=== PATIENT | male | born 1935 ===

== ENCOUNTER 2022-12-10 14:50 | Inpatient (IN) | payer MEDICARE, OTHER ==
[~2022-12-10] VITALS: Ht 180.3 cm; Wt 77.8 kg
--- NOTE | 2022-12-10 15:40 | NUR ---
Pt arrives to facility via EMS. Is alert, Ox4, VSS, Ox4. L arm in sling. Able to move fingers, cap refill >3 sec, radial pulse strong/easily palpable. Reports pain to L upper arm 2/10 at rest. Abrasion to L elbow noted. Dried blood and bandaid in place. IV to RFA - SL. Easily moves legs in bed. Bilat knees noted to have non-draining abrasions. Reports prior to injury, up independant at home. Has had "a couple" recent falls, one of which led to current injury.
[2022-12-10 16:08] VITALS: BP 107/59; PULSE 65; TEMP 98.3
[2022-12-10 17:00] VITALS: BP_SYST 107
--- NOTE | 2022-12-10 17:15 | NUR ---
Assist ortho provider to place splint to PIPPA and reapply sling.
[2022-12-10] MEDS ORDERED: CORDARONE200 MG/TAB PO (17:22)
[2022-12-10] MEDS ORDERED: COREG 3.123.125 MG/T PO (17:24)
[2022-12-10] MEDS ORDERED: CRESTOR5 MG PO (17:25)
[2022-12-10] MEDS ORDERED: LASIX 40MG TABL40 MG PO (17:28)
[2022-12-10] MEDS ORDERED: PROSCAR 5MG5 MG PO (17:30)
[2022-12-10] MEDS ORDERED: MULTI-VITAMIN W1 TA1 PO (17:31)
[2022-12-10] MEDS ORDERED: ASPIRIN E.C. 8181 MG PO (17:31)
[2022-12-10 19:33] VITALS: BP 96/49; PULSE 65; TEMP 98.4
--- NOTE | 2022-12-10 20:00 | NUR ---
Patient resting in bed. Denies any pain at this time. Heart rate regular, lungs clear in all lobes, bowels active in all quadrants. IV in right forarm appears clean, dry, intact, and infusing with no complications. Denies any needs at this time. Call light and personal items in reach. Bed in low postion, bed alarm on, and non-slip footwear in place.
[2022-12-10 21:00] VITALS: BP_SYST 96
[2022-12-10 23:33] VITALS: BP 112/54; PULSE 68; TEMP 98.5
[2022-12-11] VITALS (12 sets, daily range): BP systolic 100–126; BP diastolic 50–61; PULSE 7–81; TEMP 97.9–100.1
--- NOTE | 2022-12-11 06:00 | NUR ---
Patient resting in bed. Denies any pain at this time. Patient monitored throughout the night by this nurse. Call light and personal items in reach. Bed in low postion and bed alarm on. Denies any other needs at this time.
[2022-12-11 06:40] LABS: BASO % 0.3 % (0.0-2.0); EOS # 0.1 K/mm3 (0.0-0.7); EOS % 1.1 % (0.0-4.0); GRAN # 9.7 K/mm3 (1.4-6.5); GRAN % 80.6 % (42.2-75.2); HEMOGLOBIN 11.1 g/dl (13.5-18.0); LYMPH # 0.9 K/mm3 (1.2-3.4); LYMPH % 7.8 % (20.0-51.0); MEAN CELL VOLUME 89 fl (80.0-100.0); MEAN CORPUSCULAR HEMOGLOBIN 30 pg (27-31); MEAN CORPUSCULAR HGB CONC 34 g/dl (33.0-37.0); MEAN PLATELET VOLUME 9.3 fl (7.4-10.4); MONO # 1.1 K/mm3 (0.1-0.6); MONO % 9.5 % (1.7-9.3); PLATELET COUNT 154 K/mm3 (130-400); RED BLOOD COUNT 3.66 M/mm3 (4.20-5.60); REDCELL DISTRIBUTION WIDTH-CV 13.3 % (11.5-14.5)
[2022-12-11 06:55] LABS: C-REACTIVE PROTEIN 13.25 mg/dL (0.00-0.50); CALCIUM 8.1 mg/dL (8.4-10.2); CREATININE, serum 4.29 mg/dL (0.72-1.25); MAGNESIUM 2.1 mg/dL (1.6-2.6); POTASSIUM 4.4 mmol/L (3.5-4.5)
[2022-12-11 07:00] LABS: HEMATOCRIT 32.6 % (42.0-52.0)
--- NOTE | 2022-12-11 15:57 | NUR ---
Flame Annealing Machine Setter attempted to contact Patient via bed phone to conduct Care Managment Assessment due to Patient being on droplet isolation. Patient did not answer. SW requested Nurse's assistance when able to assist Patient with bed phone for assessment. Flame Annealing Machine Setter attempted to contact Patient's NOK listed as "family" in chart. SW was unable to leave a voicemail.
[2022-12-11 16:43] LABS: COLLECTION METHOD CLEAN CATCH
[2022-12-11 16:51] LABS: MUCOUS Present (NOT PRESENT); SQUAMOUS EPITHELIAL 0-2 /hpf (0-10); URINE BACTERIA None Seen /hpf (NONE SEEN); URINE RBC 0-2 /hpf (0-2)
[2022-12-11 16:52] LABS: PH 5.5 (5.0-8.5); URINE APPEARANCE Clear (CLEAR/HAZY); URINE BLOOD Negative (NEGATIVE); URINE COLOR Yellow (YELLOW); URINE GLUCOSE Negative (NEGATIVE); URINE KETONE Negative (NEGATIVE); URINE NITRATE Negative (NEGATIVE); URINE PROTEIN(semi-quant) 1+ (NEGATIVE); URINE UROBILINOGEN 0.2 E.U/dL (0.2-1.0)
--- NOTE | 2022-12-11 18:33 | NUR ---
ELECTRICAL INSPECTOR HAD SPOKEN TO PT DAUGHTER JESSICA LOPEZ EARLIER DURING SHIFT. DAUGHTER HAD ASKED ELECTRICAL INSPECTOR ABOUT VISITING PT WITH HER MOTHER (PT ); ELECTRICAL INSPECTOR INFORMED DAUGHTER THAT COVID PATIENTS IN ISOLATION CAN'T HAVE VISITORS, SO THEY CAN'T VISIT. ELECTRICAL INSPECTOR HAD TOLD DAUGHTER THAT STAFF WOULD HELP PT CALL DAUGHTER AND @ 1800 TO TALK TO THEM. MARGAUX (PCT) ATTEMPTED TO CALL FROM PATIENT ROOM TO THE DAUGHTER AND SAID THAT THE CALL WOULD NOT GO THROUGH; ELECTRICAL INSPECTOR WAS BUSY WITH OTHER PATIENT CARE AT THIS TIME. DAUGHTER CALLED ELECTRICAL INSPECTOR @ 1830 ASKING ABOUT THE CALL. ELECTRICAL INSPECTOR INFORMED DAUGHTER ABOUT DIFFICULTY WITH THE PHONE IN THE ROOM REPORTED BY PCT. DAUGHTER INSTANTLY BECAME ENRAGED AND YELLING. ELECTRICAL INSPECTOR ASKED DAUGHTER TO PLEASE NOT YELL AT ELECTRICAL INSPECTOR. DAUGHTER ASKED ABOUT BRINGING PT CELL PHONE UP, ELECTRICAL INSPECTOR TOLD HER THAT WOULD BE FINE TO BRING IT UP BUT THAT THEY STILL COULD NOT VISIT. DAUGHTER CLAIMS THAT ELECTRICAL INSPECTOR TOLD HER EARLIER THAT SHE COULD NOT BRING THE CELL PHONE UP, BUT THAT WAS NEVER BROUGHT UP IN EARLIER CONVERSATION. DAUGHTER STARTED YELLING ABOUT PT SUPPOSEDLY NOT HAVING A WORKING PHONE IN HIS ROOM. ELECTRICAL INSPECTOR TOLD DAUGHTER THAT PT ROOM PHONE WORKS, BUT WOULD NOT CONNECT FOR CALL TO HER FOR SOME REASON. DAUGHTER WAS BECOMING AGGRESSIVE AGAIN AND STATED SHE WOULD BE CALLING THE DON IN THE MORNING. ELECTRICAL INSPECTOR GAVE DAUGHTER DON NAME.
[2022-12-12] VITALS (13 sets, daily range): BP systolic 85–132; BP diastolic 41–73; PULSE 70–84; TEMP 97.5–99.2
--- NOTE | 2022-12-12 00:02 | NUR ---
2149-PT. NEEDED HELP USING THE URINAL, HIS LEFT ARM IS WRAPPED AND IN A SLING DUE TO A HUMERUS FX, PT. DENIES ANY PAIN AT THE MOMENT, JUST DIFFICULTY DOING THINGS WITH ONLY ONE HAND, DRESSING/WRAP ON LT ARM IS C/D/I, SLING IN PLACE CORRECTLY, LUNG SOUNDS ARE CLEAR, BUT DIMINISHED, PT. DENIES ANY FURTHER NEEDS AT THIS TIME, WILL CONTINUE TO MONITOR.
[2022-12-12 08:32] LABS: CALCIUM 8.4 mg/dL (8.4-10.2); CREATININE, serum 4.16 mg/dL (0.72-1.25); MAGNESIUM 2.1 mg/dL (1.6-2.6); POTASSIUM 4.5 mmol/L (3.5-4.5)
--- NOTE | 2022-12-12 12:23 | NUR ---
Health Care Liaison contacted Patient's [id number] via phone number provided by nurse. SW conducted Care Managment Assessment with family due to Patient being COVID Pos and SW unable to contact via bed phone. Patient lives with his in [place], [place] and is established with Dr. Deluna. Patient is reported to be covered by [facility] and [employer] for insurance. Patient is reported to use [facility] for pharmacy needs. Patient is reported to utilize a walker PRN but is otherwise ambulatory on his own. Daughter states that Patient does not have DPOAHC at this time. Discharge Plan: Home.
[2022-12-13] VITALS (13 sets, daily range): BP systolic 97–110; BP diastolic 48–63; PULSE 60–79; TEMP 97.4–99.5
--- NOTE | 2022-12-13 02:03 | NUR ---
PATIENT LYING IN BED, ALERT AND ORIENTED X4. PATIENT DENIES CHEST PAIN AND SHORTNESS OF BREATH AT THIS TIME. SOFT BP's RECORDED, 87/41, 85/42, MANUAL BP MEASURED 91/48, PT DENIES DIZZINESS OR ADDITIONAL SYMPTOMS. SKYLA SARAVIA NOTIFIED, CONTINUE WATCHING AND NOTING ANY SYMPTOMS, CARVEDILOL PUT ON HOLD. LEFT ARM IS IVETH SPLINT AND SLING, PER PATIENT REPORT SENSITIVE TO TOUCH. PT HAS NO FURTHER NEEDS, QUESTIONS, OR CONCERNS AT THIS TIME. CALL LIGHT WITHIN REACH, WILL CONTINUE TO MONITOR.
--- NOTE | 2022-12-13 05:22 | NUR ---
PATIENT HAD AN UNEVENTFUL NIGHT, ALERT AND ORIENTED X4. PT REPORT ACHING PAIN IN THE LEFT ARM 7/10, PER REST ROXICODONE GIVEN AND UPON REASSESSMENT, PAIN RATED A 5/10. PT HAS NO FURTHER NEEDS, QUESTIONS, OR CONCERNS AT THIS TIME. CALL LIGHT WITHIN REACH, CARE TO BE PASSED TO DAY SHIFT NURSE.
--- NOTE | 2022-12-13 09:15 | NUR ---
Patient is resting in bed, alert and oriented x 3, refuese anypain at this time. Swing on left arm. Assessment completed, meds provided. No further needs at this time. Call light within reach.
--- NOTE | 2022-12-13 15:05 | NUR ---
rn social work reviewed chart. Patient is recommended to need post acute rehab on discharge. Physician referred [facility] to [facility]. [facility] declines Patient at this time. SW attempted to contact Patient's daughter to discuss discharge planning. SW was unable to reach her. SW attempted to contact Patient via bed phone with no success.
--- NOTE | 2022-12-13 19:22 | NUR ---
Report given to night RN.
[2022-12-14] VITALS (10 sets, daily range): BP systolic 101–126; BP diastolic 45–72; PULSE 69–81; TEMP 97.7–98.4
--- NOTE | 2022-12-14 05:15 | NUR ---
ASSESSMENT COMPLETE FOR LUMBER KILN OPERATOR. PT APPEARED TO HAVE PAIN WITH GETTING UP OUT OF BED, HOWEVER, PT DENIED NEED FOR PAIN RELIEF. PT DENIED CHEST PAIN, PALPITATIONS, SOB, N,V,D OR DIZZINESS. FALL PRECAUTIONS IN PLACE. CALL LIGHT WITHIN REACH.
[2022-12-14 07:01] LABS: BASO % 0.4 % (0.0-2.0); EOS # 0.3 K/mm3 (0.0-0.7); EOS % 2.4 % (0.0-4.0); GRAN # 8.1 K/mm3 (1.4-6.5); GRAN % 75.8 % (42.2-75.2); HEMOGLOBIN 10.4 g/dl (13.5-18.0); LYMPH # 1.2 K/mm3 (1.2-3.4); LYMPH % 11.4 % (20.0-51.0); MEAN CELL VOLUME 88 fl (80.0-100.0); MEAN CORPUSCULAR HEMOGLOBIN 30 pg (27-31); MEAN CORPUSCULAR HGB CONC 34 g/dl (33.0-37.0); MEAN PLATELET VOLUME 9.5 fl (7.4-10.4); MONO % 9.2 % (1.7-9.3); PLATELET COUNT 198 K/mm3 (130-400); RED BLOOD COUNT 3.48 M/mm3 (4.20-5.60); REDCELL DISTRIBUTION WIDTH-CV 13.4 % (11.5-14.5)
[2022-12-14 07:02] LABS: HEMATOCRIT 30.5 % (42.0-52.0)
[2022-12-14 07:12] LABS: C-REACTIVE PROTEIN 20.8 mg/dL (0.00-0.50); CALCIUM 8.3 mg/dL (8.4-10.2); CREATININE, serum 3.81 mg/dL (0.72-1.25); MAGNESIUM 2.2 mg/dL (1.6-2.6); POTASSIUM 4.4 mmol/L (3.5-4.5)
--- NOTE | 2022-12-14 08:45 | NUR ---
PT RESTING IN BED WITH EYES CLOSED UPON ENTERING, RISE AND FALL OF CHEST NOTED. PT DENIES PAIN AT THIS TIME. PT HAS A COUGH AND REPORTS SPUTUM PRODUCED WHICH THIS NURSE DID NOT OBSERVE. PT HAS SLING TO LEFT UPPER ARM, LEFT HAND HOTEL ADMINISTRATIVE ASSISTANT WEAKER THAN RIGHT DURING ASSESSMENT. WHEN OFFERED TO GET UP TO THE CHAIR FOR BREAKFAST PT STATED "I CANT EVEN STAND". THIS NURSE OFFERED ASSISTANCE TO CHAIR WHICH PT REFUSED. PT SET UP FOR BREAKFAST AND DENIES NEEDS AT THIS TIME. BED IN LOWEST POSITION, CALL LIGHT IN REACH, BED ALARM ON
--- NOTE | 2022-12-14 12:04 | NUR ---
Garment Fitter rounds: Patient on isolation precautions. Garment Fitter offered prayer outside of Patient's room.
--- NOTE | 2022-12-14 18:25 | NUR ---
PT AWAKE IN BED UPON ENTERING. SLING TO LEFT ARM AND PT DENIES PAIN OR NEEDS AT THIS TIME. BED IN LOWEST POSITION, CALL LIGHT IN REACH , BED ALARM ON.
[2022-12-15] VITALS (7 sets, daily range): BP systolic 98–136; BP diastolic 51–69; PULSE 60–96; TEMP 97.9–98.8
--- NOTE | 2022-12-15 04:41 | NUR ---
NURSING SHIFT ASSESSMENT COMPLETED. THE PATIENT WAS ALERT AND ORIENTED. THE PATIENT WAS INCONTINENT OF URINE SO A COMPLETE BED CHANGE AND EVELIO CARE WAS PROVIDED. THE PATIENT WAS ABLE TO GET OUT OF THE BED AND STAND WHILE THE BED WAS BEING CHANGED. THE PATIENT TOLERATED THE ACTIVITY WELL. THE PLAN OF CARE AND EVENING MEDICATIONS WERE REVIEWED. FRESH WATER WAS PROVIDED. BED IN LOW POSITION, BED ALARM ON, CALL LIGHT WITHIN REACH.
[2022-12-15 06:46] LABS: BASO # 0.1 K/mm3 (0.0-0.2); BASO % 0.5 % (0.0-2.0); EOS # 0.3 K/mm3 (0.0-0.7); EOS % 2.6 % (0.0-4.0); GRAN # 7.8 K/mm3 (1.4-6.5); GRAN % 71.2 % (42.2-75.2); HEMOGLOBIN 10.7 g/dl (13.5-18.0); LYMPH # 1.5 K/mm3 (1.2-3.4); LYMPH % 13.8 % (20.0-51.0); MEAN CELL VOLUME 87 fl (80.0-100.0); MEAN CORPUSCULAR HEMOGLOBIN 30 pg (27-31); MEAN CORPUSCULAR HGB CONC 34 g/dl (33.0-37.0); MEAN PLATELET VOLUME 9.3 fl (7.4-10.4); MONO # 1.2 K/mm3 (0.1-0.6); MONO % 10.8 % (1.7-9.3); PLATELET COUNT 196 K/mm3 (130-400); RED BLOOD COUNT 3.56 M/mm3 (4.20-5.60); REDCELL DISTRIBUTION WIDTH-CV 13.6 % (11.5-14.5)
[2022-12-15 06:49] LABS: HEMATOCRIT 31.1 % (42.0-52.0)
[2022-12-15 07:00] LABS: CALCIUM 8.3 mg/dL (8.4-10.2); CREATININE, serum 3.54 mg/dL (0.72-1.25); POTASSIUM 4.6 mmol/L (3.5-4.5)
--- NOTE | 2022-12-15 10:43 | NUR ---
Patient in pleasant mood this morning, alert and oriented x4. Shift assessment complete, no new variances noted from overnight. Splint and sling remain in place on left arm. Patient states pain to left arm is managed, but aggravated with movement such as physical therapy. Scheduled Tylenol administered per orders. Patient voices no concerns other than discharge plans. Patient currently in bed resting with call light in reach, all needs met at this time.
--- NOTE | 2022-12-15 13:41 | NUR ---
Patient denies pain or discomfort at this time. Patient is resting in bed with call light in reach. Tolerating food well. All needs met at this time.
--- NOTE | 2022-12-15 21:38 | NUR ---
NURSING PHYSICAL ASSESSMENT COMPLETED. THE PATIENT WAS ALERT AND ORIENTED. NO S/S OF DISTRESS NOTED. FRESH WATER PROVIDED. THE PLAN OF CARE AND EVENING MEDICATIONS REVIEWED. QUESTIONS ANSWERED. THE PTS CALL LIGHT WAS NOT CHANGING CHANNELS ON THE TV PROBLEM INVESTIGATED AND SOLVED. THE PATIENT DENIED OTHER NEEDS. CALL LIGHT WITHIN REACH AND WORKING, BED IN LOW POSITION AND BED ALARM ON.
[2022-12-16] VITALS (9 sets, daily range): BP systolic 105–128; BP diastolic 55–69; PULSE 68–79; TEMP 97.9–99.1
[2022-12-16 07:06] LABS: HEMOGLOBIN 11.2 g/dl (13.5-18.0); MEAN CELL VOLUME 86 fl (80.0-100.0); MEAN CORPUSCULAR HEMOGLOBIN 30 pg (27-31); MEAN CORPUSCULAR HGB CONC 35 g/dl (33.0-37.0); MEAN PLATELET VOLUME 9.7 fl (7.4-10.4); PLATELET COUNT 235 K/mm3 (130-400); RED BLOOD COUNT 3.69 M/mm3 (4.20-5.60); REDCELL DISTRIBUTION WIDTH-CV 13.5 % (11.5-14.5)
[2022-12-16 07:09] LABS: HEMATOCRIT 31.8 % (42.0-52.0)
[2022-12-16 07:27] LABS: CALCIUM 8.5 mg/dL (8.4-10.2); CREATININE, serum 3.43 mg/dL (0.72-1.25); POTASSIUM 4.7 mmol/L (3.5-4.5)
[2022-12-16 08:21] LABS: BAND 3 % (0-10); EOSINOPHIL 7 % (0-4); LYMPHOCYTE 14 % (20.0-51.0); NEUTROPHILS 62 % (42.0-75.2); PLATELET ESTIMATE NORMAL (NORMAL)
[2022-12-16 08:22] LABS: BURR CELLS 2+
--- NOTE | 2022-12-16 11:30 | NUR ---
Late Entry from 12-13-22 Mini Baccarat Dealer contacted [facility] to ask if they accept Patient with COVID POS. Joel requests clinical information for their review prior to providing answer. Joel contacted this [employer] Dealer and reports that they cannot accept COVID patients at this time until 5 days post pos result.
--- NOTE | 2022-12-16 14:26 | NUR ---
ORDER FOR IV BOLUS OF AMIODORONE PLACED. EKG OBTAINED PRIOR TO ADMINISTRATION. EKG SHOWED NSR. CALLED PLACED TO CARDIOLOGY TO CLARIFY IF BOLUS WAS STILL NEEDED. CARDIOLOGY STATED IT WAS NOT NEEDED. ORDER D/C'D.
--- NOTE | 2022-12-16 16:36 | NUR ---
Part Time Flexible Clerk contacted patient's step daughter, Mikayla Degroot to discuss placement options. Mikayla Degroot's first preference is [facility], but also wants referrals sent to [facility] and [facility]. SW faxed referrals to all four. Discharge Plan: SNF or [facility]
[2022-12-17] VITALS (12 sets, daily range): BP systolic 108–135; BP diastolic 59–74; PULSE 72–88; TEMP 98–98.6
--- NOTE | 2022-12-17 05:21 | NUR ---
12/17 2119 PT. STATES THAT HE'S BEEN IN BED SO LONG THAT HIS BACK IS REALLY HURTING HIM, I HELPED PT. GET REPOSITIONED FURTHER UP IN BED, AND LET HIM KNOW THAT I WOULD BE BRINGING HIS SCHEDULED PAIN MEDS TO HIM IN A LITTLE BIT, PT. DENIED ANY FURTHER NEEDS AT THIS TIME, WILL CONTINUE TO MONITOR.
--- NOTE | 2022-12-17 13:19 | NUR ---
Joel at [facility] advised they can clinically accept patient once they have a bed available. [facility] declines patient at this time. [facility] also declines as they cannot accept until patient is out of isolation.
--- NOTE | 2022-12-17 17:07 | NUR ---
soaker soda worker attempted to reach [facility]-, Mikayla Degroot, P# [phone], to discuss [facility] accepting patient when a bed is available. Mikayla Degroot did not answer, social services analyst will continue to follow up.
--- NOTE | 2022-12-17 23:12 | NUR ---
PT. STATES THAT HIS PAIN IS NOT THAT BAD RIGHT NOW, RATES IT AT A 4/10, AND SAYS THAT LONG HE DOESN'T MOVE THAT MUCH IT ISN'T BAD, I LET HIM KNOW THAT I WAS BRINGING A PAIN PILL FOR HIM ALONG WITH THE REST OF HIS NIGHT MEDS, AND THAT IF WE GOT SOME PAIN MEDICINE IN HIM IT WILL MAKE IT EASIER FOR HIM TO MOVE WITH LESS PAIN, IT'S IMPORTANT THAT WE GET HIM MOVING MUCH POSSIBLE SO THAT HE CAN HEAL, AND DOESN'T BECOME SO WEAK THAT HE LOSES ALL HIS STRENGTH, WILL CONTINUE TO MONITOR.
[2022-12-18] VITALS (9 sets, daily range): BP systolic 104–128; BP diastolic 54–70; PULSE 82–92; TEMP 97.3–98.6
[2022-12-18 07:19] LABS: HEMOGLOBIN 11.5 g/dl (13.5-18.0); MEAN CELL VOLUME 85 fl (80.0-100.0); MEAN CORPUSCULAR HEMOGLOBIN 30 pg (27-31); MEAN CORPUSCULAR HGB CONC 35 g/dl (33.0-37.0); MEAN PLATELET VOLUME 8.9 fl (7.4-10.4); PLATELET COUNT 283 K/mm3 (130-400); RED BLOOD COUNT 3.85 M/mm3 (4.20-5.60); REDCELL DISTRIBUTION WIDTH-CV 13.5 % (11.5-14.5)
[2022-12-18 07:20] LABS: HEMATOCRIT 32.8 % (42.0-52.0)
[2022-12-18 07:31] LABS: CALCIUM 8.8 mg/dL (8.4-10.2); CREATININE, serum 3.38 mg/dL (0.72-1.25); POTASSIUM 4.8 mmol/L (3.5-4.5)
[2022-12-18 08:48] LABS: BAND 2 % (0-10); EOSINOPHIL 3 % (0-4); LYMPHOCYTE 17 % (20.0-51.0); MYELOCYTE 3 % (0-0)
[2022-12-18 08:49] LABS: METAMYELOCYTE 0 % (0-0); NEUTROPHILS 66 % (42.0-75.2); PLATELET ESTIMATE NORMAL (NORMAL)
--- NOTE | 2022-12-18 11:26 | NUR ---
Patient in pleasant mood this morning, voices no concerns other than mild left arm pain. Scheduled Tylenol administered. Shift assessment complete, no new variances noted. Continues to tolerate food and fluids well, urine output adequate. Patient currently in bed with call light in reach, all needs met at this time.
--- NOTE | 2022-12-18 15:56 | NUR ---
Patient doing well. Denies increase in pain, scheduled Tylenol administered for mild pain. Patient refuses to get out of bed and go to chair and declined assistance from this nurse. Patient is content in bed. Patient ate minimal lunch, states he doesn't like rice or whole veggies. Declined this nurse's offer to assist in cutting food up. Patient currently in bed with fresh iced water and call light in reach. HOB elevated 30 degrees. All needs met at this time.
--- NOTE | 2022-12-18 16:31 | NUR ---
Doctor Of Podiatric Medicine spoke with Lorrie at [facility] who advised they can accept patient tomorrow. SW confirmed with PT that patient could ride in their transport van in a regular seat. SW updated patient's step daughter, Mikayla Degroot who is in agreement with discharge plan and stated she and her mom plan to visit [facility]. Discharge Plan: [facility]
--- NOTE | 2022-12-18 18:14 | NUR ---
Family currently visiting patient. Two visitors donning full PPE currently in patient's room. Education provided on PPE and removal. Patient in bed with call light in reach.
[2022-12-19] VITALS (7 sets, daily range): BP systolic 95–128; BP diastolic 55–62; PULSE 76–82; TEMP 97.6–98.1
--- NOTE | 2022-12-19 05:19 | NUR ---
12/18 2100 PT. STATES HE'S WORRIED ABOUT LEAVING TOMORROW AND GOING TO THE OTHER FACILITY, HE STATES HE THOUGHT HE WAS GOING TO ANOTHER HOSPITAL, NOT A NURSING FACILITY FOR REHAB, PT. STATES PLACES LIKE THAT HIRE ANYONE OFF OF THE STREET, AND THAT HE'S WORRIED ABOUT THE CARE HE WILL RECEIVE THERE, I TRIED TO OFFER REASSURANCE, WILL CONTINUE TO MONITOR.
[2022-12-19 06:43] LABS: HEMOGLOBIN 11.8 g/dl (13.5-18.0); MEAN CELL VOLUME 85 fl (80.0-100.0); MEAN CORPUSCULAR HEMOGLOBIN 30 pg (27-31); MEAN CORPUSCULAR HGB CONC 35 g/dl (33.0-37.0); MEAN PLATELET VOLUME 9.3 fl (7.4-10.4); PLATELET COUNT 298 K/mm3 (130-400); RED BLOOD COUNT 3.97 M/mm3 (4.20-5.60); REDCELL DISTRIBUTION WIDTH-CV 13.6 % (11.5-14.5)
[2022-12-19 06:44] LABS: HEMATOCRIT 33.6 % (42.0-52.0)
[2022-12-19 06:54] LABS: CALCIUM 8.9 mg/dL (8.4-10.2); CREATININE, serum 3.58 mg/dL (0.72-1.25); POTASSIUM 4.8 mmol/L (3.5-4.5)
[2022-12-19 07:17] LABS: BAND 1 % (0-10); EOSINOPHIL 3 % (0-4); LYMPHOCYTE 18 % (20.0-51.0); MYELOCYTE 1 % (0-0); NEUTROPHILS 74 % (42.0-75.2); PLATELET ESTIMATE NORMAL (NORMAL)
[2022-12-19 07:18] LABS: BURR CELLS 1+; OVALOCYTES 1+
--- NOTE | 2022-12-19 08:00 | NUR ---
PT AWAKE IN BED UPON ENTERING. PT REPORTS MILD LEFT ARM PAIN AND DENIES OTHER NEEDS AT THIS TIME. SLING ON LEFT ARM AND PT TOLERATING WELL. PT SET UP FOR BREAKFAST AND REPOSTIIONED IN BED BY PCT AND THIS NURSE. BED IN LOWEST POSITION, CALL LIGHT IN REACH, BED ALARM ON.
[2022-12-19] MEDS ORDERED: CORDARONE200 MG/TAB PO (09:13)
[2022-12-19] MEDS ORDERED: ELIQUIS 2.5 PO ×3 (09:13→09:39)
[2022-12-19] MEDS ORDERED: TYLENOL 500MG500 MG PO (09:14)
[2022-12-19] MEDS ORDERED: RT Albuterol HFA MDI IH (09:15)
[2022-12-19] MEDS ORDERED: ROXICODONE 55 MG/TAB PO (09:15)
--- NOTE | 2022-12-19 13:00 | NUR ---
IV AND TELEMETRY DISCONTINUED. PT CHANGED INTO HOSPITAL SCRUB PANTS AND GOWN. PT TRANSFERRED TO CHAIR AND REPORTS LEFT ARM PAIN WITH MOVEMENT BUT DENIES PAIN AT REST. PT TRANSFERRED TO WHEELCHAIR ALONG WITH PERSONAL BELONGINGS. PT DENIES NEEDS AT THIS TIME AND ASSISTED BY [facility] STAFF TO [place] FOR TRANSPORT.
--- NOTE | 2022-12-19 14:44 | NUR ---
REPORT CALLED TO NURSE AYALA AT [facility]
--- NOTE | 2022-12-19 14:51 | NUR ---
Registered Nurse Step Down spoke with Lorrie at [facility] who advised they can still accept patient today with a pick up and delivery driver time of 1300. JLUIS contacted patient's step daughter, Mikayla Degroot and reviewed IM form. Mikayla Degroot took this opportunity to express that she did not feel she had good communication with the hospital about patient's plan of care. Mikayla Degroot declined when JLUIS offered to have Hospitalist contact her and she stated she plans to just move forward with [facility] and will contact them about any further questions or concerns. Mikayla Degroot is aware of discharge time and is agreeable to plan. JLUIS faxed discharge orders to [facility]. Discharge Plan: [facility]F
== END 2022-12-19 13:30 | DRG 177 ==
LOC: MEDICAL 14:50
PROVIDERS: Hospitalist; Internal Medicine; ADMIT Internal Medicine
DX: U07.1 COVID-19 (principal); S72.92XA Unspecified fracture of left femur, initial encounter for closed fracture; N18.5 Chronic kidney disease, stage 5; I13.2 Hypertensive heart and chronic kidney disease with heart failure and with stage 5 chronic kidney disease, or end stage renal disease; I50.42 Chronic combined systolic (congestive) and diastolic (congestive) heart failure; E87.1 Hypo-osmolality and hyponatremia; G72.81 Critical illness myopathy; Z86.73 Personal history of transient ischemic attack (TIA), and cerebral infarction without residual deficits; I48.91 Unspecified atrial fibrillation; Z79.01 Long term (current) use of anticoagulants
CPT/HCPCS: J1644; J7030; Q3014